=== PATIENT | male | born 1945 | race Caucasian/White ===

== ENCOUNTER → 2020-12-04 00:08 | Outpatient (CLI) | payer MEDICARE, SELFPAY ==
[2020-12-04 18:28] LABS: SARS-CoV-2 RNA PCR Negative
== END ==
PROVIDERS: PCP Pediatrics; Visit Provider Urology
DX: Z01.812 Encounter for preprocedural laboratory examination (principal); Z20.822 Contact with and (suspected) exposure to COVID-19
CPT/HCPCS: C9803; U0003; U0005

== ENCOUNTER 2020-12-07 00:46 | Day surgery (SDC) | payer MEDICARE, SELFPAY ==
[2020-12-07] VITALS (8 sets, daily range): BP systolic 136–180; BP diastolic 76–90; PULSE 62–79; RESP 13–20; TEMP 36.4–36.5; O2SAT 94–100
--- NOTE | ~2020-12-07 | XR_ITS ---
EXAMINATION: XR retrograde pyelogram BI DATE: 12/07/2020 16:08 TREAD BUILDER INDICATION: Bilateral retrograde pyelogram TECHNIQUE: 112 fluoroscopic images from bilateral retrograde pyelogram are submitted for review.] 24 seconds of fluoroscopy. FINDINGS: There is normal course and caliber of both ureters with normal contrast opacification. Liberty guanako are normally cupped. No persistent filling defects are identified on either side. IMPRESSION: 1. Unremarkable bilateral retrograde pyelogram.. Correlate with real time procedural findings for de tails. Reviewed, dictated and finalized at location B. D BUILDER IMPRESSION: 1. Unremarkable bilateral retrograde pyelogram.. Correlate with real time proc edural findings for details.
--- NOTE | 2020-12-07 06:37 | WPDHPUPDATE1 ---
History and Physical Update Update Date/Time: 12/07/20 06:37 History and Physical has been reviewed, including an updated exam of the patient. There are NO changes in the patient's condition. Risks, benefits, and alternatives have been discussed and questions answered. Patient agrees to proceed with procedure.
--- NOTE | 2020-12-07 13:20 | WPDANESEPPF ---
Anes - Initial Pre Proc Eval Procedure: Operation Date: 12/07/20 14:15 Proposed Procedures p Trans Urethral Resection Bladder Tumor - Luis Antonio Mancilla MD s Cystoscopy With Bilateral Retrograde Pyelogram - Luis Antonio Mancilla MD Date/Time: 12/07/20 13:20 Surgeon: Luis Antonio Mancilla MD Pre Op Diagnosis: Bladder Cancer Patient Data Age: 75 Gender: M Height: 1.91 m Weight: 115 kg Last Vital Signs Temp 36.4 C L 12/07/20 12:42 Pulse 65 12/07/20 12:42 Resp 16 12/07/20 12:42 BP 149/76 H 12/07/20 12:42 Pulse Ox 97 12/07/20 12:42 Allergies Allergy/AdvReac Type Severity Reaction Status Date / Time No Known Allergies Allergy Unverified 11/23/20 15:25 Home Medications Medication Instructions Recorded Confirmed Type amlodipine 5 mg PO DAILY 11/23/20 12/07/20 History atorvastatin 40 mg QAM 11/23/20 12/07/20 History clopidogrel 75 mg QAM 11/23/20 12/07/20 History finasteride 5 mg QAM 11/23/20 12/07/20 History metoprolol succinate 100 mg PO QAM 11/23/20 12/07/20 History venlafaxine 75 mg HS 11/23/20 12/07/20 History Patient hx anesthesia problems: none Family hx anesthesia problems: none [facility] Past Medical History Medical History (Updated 12/07/20 @ 13:23 by Syd Armendariz MD) Bladder cancer BPH (benign prostatic hyperplasia) CAD (coronary artery disease) Depression HTN (hypertension) Hypercholesterolemia Obesity Pacemaker Surgical History Surgical History (Updated 12/07/20 @ 13:23 by Syd Armendariz MD) History of coronary artery stent placement S/P CABG (coronary artery bypass graft) Social History Social History Tobacco type: smokeless tobacco Additional smoking assessment comments: 1CAN/WEEK Alcohol intake: never Substance use: never Substance use type: does not use Living arrangements: with family Spiritual care concerns: No Anes - Eval Final PreProcedure Day of Procedure 12/07/20 13:20 Patient weight: obese Heart: regular rate and rhythm Lungs: clear to auscultation and normal air movement Airway: Mallampati scale class II Neurological: alert and oriented Last oral intake: >/= 8 hours ASA classification: III Emergent: no Anesthetic plan: proceed Anesthesia type and monitoring: general ETT Informed Consent: The patient's anesthetic plan and its attendant risks and benefits were discussed with the patient/family/POA. Questions were solicited and answers provided to the satisfaction of the patient/family/POA.
[2020-12-07] MEDS: LACTATED RINGERS 1,000 ML 30 ML IV CONT ×2 (13:37→15:57)
[2020-12-07] MEDS: ceFAZolin 2 GM/D5W 50 ML 2 GM/50 ML BAG IVPB (14:39)
--- NOTE | 2020-12-07 15:13 | P.OP_ITS ---
Procedure Note - Detailed Date of procedure: 12/07/20 Pre-op diagnosis: Bladder Cancer Post-op diagnosis: same Procedure performed: 1. Cystoscopy with bilateral retrograde pyelography 2. TURBT (small, 1.5-2 cm) Description of procedure: patient is brought to the operative suite where he has prepped and draped in routine sterile fashion while in a dorsal lithotomy position after the uneventful induction of a general LMA anesthetic. Nineteen F rigid cystoscope was placed in the bladder. Bladder was carefully inspected. He is found to have some faint papillary changes above the right ureteral orifice with otherwise normal mucosa. No intravesical foreign body or neoplasm. His right ureteral orifice is somewhat laterally placed. Retrograde pyelography was obtained with an 8 F cone-tipped catheter. Both retrograde pyelograms appeared normal, without filling defect, obstruction or other identifiable pathology. The cystoscope was exchanged for a 24 F resectoscope and the above-mentioned papillary areas resected in its entirety and bases cauterized with the rollerball electrode. This was done with care taken to avoid injury to the right ureteral orifice. Resectoscope was removed the patient was taken recovery room in good condition Anesthesia: GLMA Surgeon: Luis Antonio Mancilla MD Sales Development Associate: None Estimated blood loss (mL): 0 Drains: No Packing: No Pathology: yes (Bladder tumor) Complications: No immediate complications Condition: stable Disposition: PACU
[2020-12-07] MEDS: fentaNYL CITRATE INJ (*CRX) 100 MCG/2 ML VIAL 25 MCG IV PUSH ×4 (15:44→15:50)
== END 2020-12-07 17:03 | disposition home or self-care (01) ==
PROVIDERS: PCP Pediatrics; Visit Provider Urology
PROC: 0TBB8ZZ Excision of Bladder, Via Natural or Artificial Opening Endoscopic (ICD-10-PCS; CPT 52234; principal; 2020-12-07 14:15)
PROC: (CPT 52352; 2020-12-07 14:15)
DX: C67.0 Malignant neoplasm of trigone of bladder (principal); I10 Essential (primary) hypertension; I25.10 Atherosclerotic heart disease of native coronary artery without angina pectoris; N40.0 Benign prostatic hyperplasia without lower urinary tract symptoms; E78.00 Pure hypercholesterolemia, unspecified; F32.9 Major depressive disorder, single episode, unspecified; Z95.0 Presence of cardiac pacemaker; Z79.02 Long term (current) use of antithrombotics/antiplatelets; E66.9 Obesity, unspecified; Z68.31 Body mass index [BMI] 31.0-31.9, adult; F17.220 Nicotine dependence, chewing tobacco, uncomplicated
CPT/HCPCS: 52234; 74420; 88305; 88307; A9270; C1758; C1769; J0690; J1100; J2405; J2704; J3010; J7120; Q9966

== ENCOUNTER 2023-01-16 00:28 | Day surgery (SDC) | payer MEDICARE, SELFPAY ==
[2023-01-08 15:07] VITALS: BMI 29.5
--- NOTE | 2023-01-08 15:29 | PC.NURSE ---
Report to the Outpatient Waiting Room, entrance under the green pavilion located off [facility], at time __6:30AM on date __01/16/23 . Planned Procedure Time: __8:30AM . Time changes happen often and if your time is changed the preop area will call you the afternoon before. - You and your visitor will be asked to self-screen and do not enter if you have any COVID symptoms. - Only one visitor is requested with a max of two and NO children visitors are allowed at this time. - The patient visitor may be requested to leave or wait in car when not with patient due to distancing restrictions. - A mask is optional within the hospital at this time. Patients may have clear liquids (water, carbonated beverages, clear teas, apple juice) until 3 hours prior to surgery with a maximum of 20 ounces. - No food from midnight until time of surgery Take the following medications with a SIP of water the morning of surgery: ___METOPROLOL DO NOT STOP ANY OF YOUR OTHER PRESCRIPTION MEDICATIONS PRIOR TO SURGERY ?EXCEPT THE FOLLOWING Medications to discontinue per physician ____HOLD PLAVIX AND ASPIRIN PER DR LAUGHLIN- PATIENT CALLING OFFICE TO VERIFY LAST DOSE. HOLD ALL VITAMINS/SUPPLEMENTS 7 DAYS PRE-OP PER DR LAUGHLIN(PER PATIENT- LAST DOSE 01/09/23 Please no make-up, nail bengali, hairspray, perfume, deodorant, or body powder the day of surgery. No jewelry (including any body piercings) or valuables the day of surgery, leave them at home. Please take a shower or bath the night before, or the morning of, surgery with an antibacterial soap. Wear comfortable, loose fitting clothing. Children are encouraged to wear pajamas. - Jewelry must be removed prior to entering the operating room. Rings and piercings that are not removed may be cut off. - The hospital will not accept responsibility for valuables. - Please leave all valuables, including medications, at home the day of surgery. If you are going home after surgery, a licensed substitute bus driver must drive you home. - NO public transportation without another adult if you receive anesthesia. - We recommend that an adult stay with you for 24 hours following discharge. - We also recommend that you do not drive, make important decision, drink alcoholic beverages, or take any drugs that were not prescribed by your health care provider for at least 24 hours after your discharge time. Follow any additional instructions given to you from your surgeon. If you or anyone in your household have experienced Covid symptoms in the past week, please notify your surgeon or the nurse liaison at the phone number below for possible testing. Telephone instructions given to __PATIENT and asked if any additional questions and then verbalized understanding. Patient advised to call surgeon office or pre surgery nurse liaison [phone] if any additional questions.
[2023-01-16] VITALS (9 sets, daily range): BP systolic 112–158; BP diastolic 68–95; PULSE 60–73; RESP 12–16; TEMP 36.3–36.4; O2SAT 95–100
--- NOTE | 2023-01-16 05:55 | WPDHPUPDATE1 ---
History and Physical Update Update Date/Time: 01/16/23 05:55 History and Physical has been reviewed, including an updated exam of the patient. There are NO changes in the patient's condition. Risks, benefits, and alternatives have been discussed and questions answered. Patient agrees to proceed with procedure.
--- NOTE | 2023-01-16 07:04 | P.PNAN_ITS ---
Anes - Initial Pre Proc Eval Procedure: Operation Date: 01/16/23 08:30 Proposed Procedures p Trans Urethral Resection Bladder Tumor with Gemcitabine Instillation - Luis Antonio Mancilla MD Date/Time: 01/16/23 07:04 Surgeon: Luis Antonio Mancilla MD Pre Op Diagnosis: BPH Patient Data Age: 77 Gender: M Height: 1.91 m Weight: 107 kg Allergies Allergy/AdvReac Type Severity Reaction Status Date / Time No Known Allergies Allergy Unverified 01/08/23 14:58 Home Medications Medication Instructions Recorded Confirmed Type atorvastatin 40 mg tablet 40 mg PO QAM 11/23/20 01/08/23 History clopidogrel 75 mg tablet 75 mg PO QAM 11/23/20 01/08/23 History finasteride 5 mg tablet 5 mg PO QAM 11/23/20 01/08/23 History metoprolol succinate 50 mg 50 mg PO QAM 11/23/20 01/08/23 History tablet,extended release 24 hr aspirin 81 mg tablet,delayed 81 mg PO DAILY 01/08/23 01/08/23 History release calcium 500 mg tablet 500 mg PO BID 01/08/23 01/08/23 History cholecalciferol (vitamin D3) 50 50 mcg PO DAILY 01/08/23 01/08/23 History mcg (2,000 unit) tablet tumeric 100 mg-grace 150 mg-olive 1 cap PO DAILY 01/08/23 01/08/23 History 50 mg-oreg 150 mg-caprylate capsule venlafaxine 75 mg capsule,extended 75 mg PO HS 01/08/23 01/08/23 History release 24 hr Patient hx anesthesia problems: none Family hx anesthesia problems: none Results Review: All pre-operative results and documents have been reviewed as part of the pre- operative evaluation. [facility] Past Medical History Medical History Bladder cancer BPH (benign prostatic hyperplasia) CAD (coronary artery disease) Depression HTN (hypertension) Hypercholesterolemia Obesity Pacemaker Surgical History Surgical History History of coronary artery stent placement S/P CABG (coronary artery bypass graft) Social History Social History Smoking packs per day: 1 Smoking cigarettes per day: 20.0 Years smoked: 40 Smoking pack-years: 40.00 Smoking status: Current every day smoker Tobacco type: cigarettes Additional smoking assessment comments: CURRENTLY SMOKING 3 CIG/DAY Alcohol intake: never Substance use: never Substance use type: does not use Living arrangements: with family Additional living arrangements comments: Spiritual care concerns: No Anes - Eval Final PreProcedure Day of Procedure 01/16/23 07:04 Patient weight: obese Heart: regular rate and rhythm Lungs: clear to auscultation Airway: Mallampati scale class II Neurological: alert and oriented Last oral intake: >/= 8 hours ASA classification: III Emergent: no Anesthetic plan: proceed Anesthesia type and monitoring: general LMA and standard monitoring Results Review: All pre-operative results and documents have been reviewed as part of the pre- operative evaluation. Informed Consent: The patient's anesthetic plan and its attendant risks and benefits were discussed with the patient/family/POA. Questions were solicited and answers provided to the satisfaction of the patient/family/POA.
[2023-01-16] MEDS: LACTATED RINGERS 1,000 ML 30 ML IV CONT (07:45)
[2023-01-16] MEDS: ceFAZolin 2 GM/D5W 50 ML 2 GM/50 ML BAG IVPB (08:19)
[2023-01-16] MEDS: LIDOCAINE HCL 2% GEL UROJET 10 ML PKG MUCOUS MEM (08:36)
--- NOTE | 2023-01-16 08:44 | W.PM.PROC2 ---
Procedure Note - Detailed Date of Procedure 01/16/23 Pre-op Diagnosis Recurrent bladder tumor Post-op Diagnosis Same Procedure Performed TURBT (small) Surgeon Luis Antonio Mancilla MD Anesthesia General Description of Procedure The patient was brought to the operative suite where he is prepped and draped in a routine sterile fashion while in the dorsal lithotomy position. This is done after the uneventful administration of systemic sedation. 2% Xylocaine jelly is introduced intraurethrally and allowed to stand for an appropriate period of time. A 24F resectoscope sheath was placed in the bladder and the bladder is circumferentially inspected carefully. 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 This area is resected in its entirety with an attempt made to include detrusor muscle for pathological evaluation of invasion. The base and periphery of this resected side is cauterized with a loop electrode. The bladder is emptied and the resectoscope was removed. The patient is taken to the recovery room having tolerated this procedure well. Drains Yes Packing No Pathology Yes Complications No immediate complications Condition Stable
--- NOTE | 2023-01-16 08:47 | P.OP_ITS ---
Procedure Note - Detailed Date of Procedure 01/16/23 Pre-op Diagnosis Recurrent bladder tumor Post-op Diagnosis Same Procedure Performed Gemcitabine installation Surgeon Luis Antonio Mancilla MD Anesthesia None Description of Procedure With the patient in the supine position, a 16F Merchant catheter is placed using st erile technique. Using a protective facemask, gown and double layer of gloves Gemcitabine 2gm in 100cc saline is administered through the catheter/into the bladder. The catheter is then plugged. Patient was instructed to lie supine x20min, then to roll both the left and right x20 min. each. Total dwell time will be 60 min., after which the bladder will be drained and catheter removed. Drains No Packing No Pathology None sent Complications No immediate complications
[2023-01-16] MEDS: fentaNYL CITRATE INJ (*CRX) 100 MCG/2 ML VIAL 25 MCG IV PUSH ×8 (08:55→09:36)
[2023-01-16] MEDS: SODIUM CHLORIDE 0.9% IV 23.7 ML, GEMCITABINE HCL 1,000 MG BLADDER ×2 (08:57)
[2023-01-16] MEDS: SODIUM CHLORIDE 0.9% IV 50 ML BAG 150 ML IRRIGATION (10:03)
== END 2023-01-16 11:08 | disposition home or self-care (01) ==
PROVIDERS: PCP Pediatrics; Visit Provider Urology
PROC: 0TBB8ZZ Excision of Bladder, Via Natural or Artificial Opening Endoscopic (ICD-10-PCS; CPT 52234; principal; 2023-01-16 08:30)
DX: N30.80 Other cystitis without hematuria (principal); Z85.51 Personal history of malignant neoplasm of bladder; N40.0 Benign prostatic hyperplasia without lower urinary tract symptoms; I10 Essential (primary) hypertension; E78.00 Pure hypercholesterolemia, unspecified; I25.10 Atherosclerotic heart disease of native coronary artery without angina pectoris; E66.9 Obesity, unspecified; Z68.31 Body mass index [BMI] 31.0-31.9, adult; Z95.1 Presence of aortocoronary bypass graft; Z95.5 Presence of coronary angioplasty implant and graft; Z79.02 Long term (current) use of antithrombotics/antiplatelets; Z79.82 Long term (current) use of aspirin; F17.210 Nicotine dependence, cigarettes, uncomplicated
CPT/HCPCS: 52234; 51720; 88305; 88342; J0690; J2405; J2704; J3010; J7120; J9201

== ENCOUNTER 2023-09-29 15:48 | Outpatient (CLI) | payer MEDICARE, SELFPAY ==
--- NOTE | ~2023-09-29 | XR_ITS ---
EXAMINATION: XR shoulder RT min 2V DATE: 09/29/2023 16:10 INDICATION: Right shoulder pain. TECHNIQUE: 4 views of right shoulder were obtained. COMPARISON: None. FINDINGS: Bone alignment is normal. No fracture. There is mild osteoarthritis of glenohumeral joint a nd moderate osteoarthritis of acromioclavicular joint. IMPRESSION: 1. Polyarticular osteoarthritis. Reviewed, dictated and finalized at location E. ESTRA LEADER
--- NOTE | ~2023-09-29 | XR_ITS ---
EXAMINATION: XR shoulder LT min 2V DATE: 09/29/2023 16:10 INDICATION: Left shoulder pain. TECHNIQUE: 4 views of left shoulder were obtained. COMPARISON: None. FINDINGS: Bone alignment is normal. No fracture. There is mild osteoarthritis of glenohumeral joint a nd moderate osteoarthritis of acromioclavicular joint. Median sternotomy wires and mediastinal surgic al clips are seen, likely from prior coronary artery bypass grafting. A left-sided pacer is noted. IMPRESSION: 1. Polyarticular osteoarthritis. Reviewed, dictated and finalized at location E. CAL ARTIST
== END 2023-09-29 15:49 | disposition home or self-care (01) ==
PROVIDERS: PCP Pediatrics; Visit Provider Physician Assistant
DX: M19.011 Primary osteoarthritis, right shoulder (principal); M19.012 Primary osteoarthritis, left shoulder
CPT/HCPCS: 73030